=== PATIENT | female | born 1960 | race African-American/Black ===

== ENCOUNTER 2023-03-12 14:19 | Emergency (ER) | payer MEDICAID, OTHER ==
[~2023-03-12] VITALS: Ht 165.1 cm; Wt 132.0 kg
[~2023-03-12 14:19] MED LIST: HYDR12.529 PO; NORE5TAB3 PO
[2023-03-12 14:30] VITALS: BP 136/74
[2023-03-12 15:34] LABS: BASOPHILS % 0.5 % (0.0-2.0); EOSINOPHILS % 1.6 % (0.0-5.0); HEMATOCRIT. 38.7 % (36.0-48.0); HEMOGLOBIN. 12.6 g/dL (12.0-16.0); LYMPHOCYTES % 31.2 % (20.0-50.0); MEAN CORPUSCULAR HEMOGLOBIN 23.7 pg (28.0-32.0); MEAN CORPUSCULAR VOLUME 72.6 fL (81.0-99.0); MEAN PLATELET VOLUME 9.1 fl (7.4-10.4); MONOCYTES % 8.2 % (2.0-8.0); NEUTROPHILS % 58.5 % (40.0-76.0); PLATELET 290 x1000/uL (130-400); RED BLOOD CELL COUNT 5.33 mill/uL (4.2-5.4); RED CELL DISTRIBUTION WIDTH 16.9 % (11.6-14.6)
[2023-03-12 15:51] LABS: CHLORIDE 109 mEq/L (98-107)
[2023-03-12] MEDS ORDERED: MECL-159 MT (19:37)
== END 2023-03-12 22:28 | disposition home or self-care (01) ==
LOC: ER 14:19
DX: R42 Dizziness and giddiness (principal); E11.9 Type 2 diabetes mellitus without complications; I10 Essential (primary) hypertension; E78.00 Pure hypercholesterolemia, unspecified; Z88.0 Allergy status to penicillin
CPT/HCPCS: 36415; 71045; 80053; 84484; 85025; 93005; 99285

== ENCOUNTER 2024-03-02 02:32 | Emergency (ER) | payer MEDICAID ==
[~2024-03-02] VITALS: Ht 167.6 cm; Wt 126.0 kg
[~2024-03-02 02:32] MED LIST changes: +MECL-299 MT
[2024-03-02 02:42] VITALS: TEMP 98.2; O2SAT 99
[2024-03-02 03:47] VITALS: BP 186/85; PULSE 73; RESP 18
[2024-03-02] MEDS: SODIUM CHLORIDE 0.9% 1,000 ML IV ONE (03:47)
[2024-03-02] MEDS: KETOROLAC 30MG/ML VIAL IV STA (03:47)
[2024-03-02 03:50] LABS: BASOPHILS % 1.1 % (0.0-2.0); DIFFERENTIAL COMMENT 0; EOSINOPHILS % 1.3 % (0.0-5.0); HEMATOCRIT. 40.8 % (36.0-48.0); HEMOGLOBIN. 13.2 g/dL (12.0-16.0); MEAN CORPUSCULAR HEMOGLOBIN 23.6 pg (28.0-32.0); MEAN CORPUSCULAR HGB CONC 32.4 g/dL (31.0-37.0); MEAN CORPUSCULAR VOLUME 72.9 fL (81.0-99.0); MEAN PLATELET VOLUME 8.7 fl (7.4-10.4); MONOCYTES % 9.6 % (2.0-8.0); PLATELET 323 x1000/uL (130-400); RED BLOOD CELL COUNT 5.59 mill/uL (4.2-5.4); WHITE BLOOD COUNT 6.8 x1000/uL (4.5-11.0)
[2024-03-02 04:08] LABS: INR 0.9; PROTHROMBIN TIME 10.3 sec (9.6-11.0)
[2024-03-02 04:25] LABS: CHLORIDE 113 mEq/L (98-107); POTASSIUM 3.1 mEq/L (3.5-5.1); SODIUM 143 mEq/L (136-145)
[2024-03-02 04:26] LABS: CALCIUM 8.4 mg/dL (8.7-10.4); CARBON DIOXIDE 24 mEq/L (21-32)
[2024-03-02 04:31] LABS: CREATININE 0.6 mg/dL (0.6-1.0); GLUCOSE 106 mg/dL (70-105); UREA NITROGEN BLOOD 8 mg/dL (9-23)
[2024-03-02 04:33] LABS: ALANINE AMINOTRANSFERASE 13 IU/L (10-49); ALBUMIN 3.5 g/dL (3.2-4.8); ASPARTATE AMINOTRANSFERASE 13 IU/L (<34); BILIRUBIN TOTAL 0.3 mg/dL (0.1-1.0); PROTEIN TOTAL 5.6 g/dL (6.0-8.3)
[2024-03-02 04:33] LABS: CLARITY URINE CLEAR (CLEAR); COLOR URINE YELLOW (YELLOW); GLUCOSE URINE NEGATIVE (NEGATIVE); KETONES URINE NEGATIVE (NEGATIVE); LEUKOCYTE ESTERASE URINE NEGATIVE (NEGATIVE); NITRITE URINE NEGATIVE (NEGATIVE); OCCULT BLOOD URINE NEGATIVE (NEGATIVE); PH URINE 6.5 (4.5-8.0); PROTEIN URINE NEGATIVE (NEGATIVE); SPECIFIC GRAVITY URINE 1.018 (1.005-1.030)
[2024-03-02] MEDS ORDERED: TOPUD PO (06:37)
[2024-03-02] MEDS: POTASSIUM CHLORIDE 20MEQ/PACKET PO NR (06:54)
== END 2024-03-02 06:59 | disposition home or self-care (01) ==
LOC: ER 02:42
DX: R10.9 Unspecified abdominal pain (principal); E87.6 Hypokalemia; E11.9 Type 2 diabetes mellitus without complications; E78.00 Pure hypercholesterolemia, unspecified; I10 Essential (primary) hypertension
CPT/HCPCS: 80053; 81003; 83605; 83690; 85025; 85610; 36415; 74176; 96361; 96374; 99285; J1885; J7030; Z7610 ×3